=== PATIENT | male | born 1950 | race Caucasian/White ===

== ENCOUNTER → 2017-04-03 | Outpatient (CLI) | payer MEDICARE, MEDICAID | END | disposition home or self-care (01) | LOC: US 10:30 | PROVIDERS: ATTEND Internal Medicine Gastroenterology | DX: J44.9 Chronic obstructive pulmonary disease, unspecified (principal); Z86.19 Personal history of other infectious and parasitic diseases | CPT/HCPCS: 71020; 76700 ==

== ENCOUNTER → 2017-05-14 | Outpatient (CLI) | payer MEDICARE, MEDICAID | END | disposition home or self-care (01) | LOC: CT 09:22 | PROVIDERS: ATTEND Internal Medicine Gastroenterology | DX: J44.9 Chronic obstructive pulmonary disease, unspecified (principal); Z87.891 Personal history of nicotine dependence | CPT/HCPCS: 71250; 76536 ==